=== PATIENT | female | born 1980 | race African-American/Black ===

== ENCOUNTER 2017-11-25 06:48 | Emergency (ER) | payer MEDICAID, OTHER ==
[2017-11-25] MEDS ORDERED: ALBUTEROL (0.083%) 2.5MG/3ML NEB HHN STA (07:21)
[2017-11-25] MEDS ORDERED: ACETAMINOPHEN 325MG TABLET PO ONE (07:30)
[2017-11-25] MEDS ORDERED: KETOROLAC 30MG/ML VIAL IV ONE (07:30)
[2017-11-25] MEDS ORDERED: KETOROLAC 60MG/2ML VIAL IM ONE (07:45)
[2017-11-25 09:39] VITALS: BP 148/80
== END 2017-11-25 09:40 | disposition home or self-care (01) ==
LOC: ER 07:30
DX: R78.9 Finding of unspecified substance, not normally found in blood (principal); R05 Cough; R68.83 Chills (without fever); R03.0 Elevated blood-pressure reading, without diagnosis of hypertension
CPT/HCPCS: 71045; 81025; 93005; 94640; 96372; 99284; J1885; J7611